=== PATIENT | male | born 1995 | race Two or more races ===

== ENCOUNTER 2024-03-02 15:24 | Emergency (ER) | payer OTHER ==
[~2024-03-02] VITALS: Ht 172.7 cm; Wt 75.3 kg
[2024-03-02 15:51] VITALS: BP 109/70; O2SAT 99
== END 2024-03-02 19:09 | disposition home or self-care (01) ==
LOC: ER 15:25
DX: M94.0 Chondrocostal junction syndrome [Tietze] (principal)